=== PATIENT | female | born 1990 | race Caucasian/White ===

== ENCOUNTER 2017-12-13 11:38 | Emergency (ER) | payer OTHER ==
[2017-12-13] MEDS: IBUPROFEN 800 MG TAB PO (13:08)
[2017-12-13 13:27] LABS: URINE BLOOD (Dip) POC 1+ (NEGATIVE); URINE GLUCOSE (Dip) POC Negative (NEGATIVE); URINE KETONES (Dip) POC Negative (NEGATIVE); URINE LEUKOCYTE EST (Dip) POC Negative (NEGATIVE); URINE NITRITE (Dip) POC Negative (NEGATIVE); URINE TOTAL PROTEIN POC Trace (NEGATIVE)
== END 2017-12-13 14:50 | disposition home or self-care (01) ==
LOC: FTE 11:38
DX: R07.81 Pleurodynia (principal)
CPT/HCPCS: 71045; 81003; 81025; 93005; 99284-25

== ENCOUNTER 2018-12-15 15:06 | Emergency (ER) | payer OTHER ==
[2018-12-15] MEDS: ONDANSETRON (ODT) 4 MG TAB ODT (16:51)
[2018-12-15] MEDS: IBUPROFEN 600 MG TAB PO (16:51)
[2018-12-15 16:52] LABS: URINE PH (Dip) POC 5.5 (5.0-8.5)
[2018-12-15 16:52] LABS: URINE BLOOD (Dip) POC 1+ (NEGATIVE); URINE GLUCOSE (Dip) POC Negative (NEGATIVE); URINE KETONES (Dip) POC Negative (NEGATIVE); URINE LEUKOCYTE EST (Dip) POC Negative (NEGATIVE); URINE NITRITE (Dip) POC Negative (NEGATIVE); URINE TOTAL PROTEIN POC Trace (NEGATIVE)
[2018-12-15 17:17] LABS: ADD MAN DIFF? NO
[2018-12-15 17:19] LABS: BASOPHIL # 0.1 10^3/ul (0.0-0.1); BASOPHILS % 0.4 % (0.0-2.0); EOSINOPHILS # 0.1 10^3/ul (0.0-0.5); EOSINOPHILS % 0.4 % (0.0-7.0); HEMATOCRIT 44.5 % (37.0-47.0); HEMOGLOBIN 14.5 g/dl (12.0-16.0); LYMPHOCYTES # 2.9 10^3/ul (0.8-2.9); LYMPHOCYTES % 18.8 % (15.0-51.0); MEAN CORPUSCULAR HEMOGLOBIN 30.9 pg (29.0-33.0); MEAN CORPUSCULAR HGB CONC 32.6 g/dl (32.0-37.0); MEAN CORPUSCULAR VOLUME 94.9 fl (82.0-101.0); MEAN PLATELET VOLUME 10.2 fl (7.4-10.4); MONOCYTE # 1.4 10^3/ul (0.3-0.9); NEUTROPHIL # 10.8 10^3/ul (1.6-7.5); PLATELET COUNT 237 10^3/UL (140-415); RED BLOOD COUNT 4.69 10^6/ul (4.20-5.40); RED CELL DISTRIBUTION WIDTH 12.7 % (11.5-14.5)
[2018-12-15 17:19] LABS: WHITE BLOOD COUNT 15.2 10^3/ul (4.8-10.8)
[2018-12-15 17:43] LABS: ALANINE AMINOTRANSFERASE 15 IU/L (13-69); ALBUMIN 4.3 g/dl (3.3-4.9); ALBUMIN/GLOBULIN RATIO 1.22; ALKALINE PHOSPHATASE 77 IU/L (42-121); ANION GAP 11 (5-13); ASPARTATE AMINO TRANSFERASE 19 IU/L (15-46); BILIRUBIN,INDIRECT 0.8 mg/dl (0-1.1); BILIRUBIN,TOTAL 0.8 mg/dl (0.2-1.3); BLOOD UREA NITROGEN 7 mg/dl (7-20); CALCIUM 9.6 mg/dl (8.4-10.2); CARBON DIOXIDE 27 mmol/L (21-31); CHLORIDE 104 mmol/L (97-110); CREATININE 0.84 mg/dl (0.44-1.00); Estimated GFR > 60 mL/min (>60); GLUCOSE 94 mg/dl (70-220); LIPASE 39 U/L (23-300); POTASSIUM 3.7 mmol/L (3.5-5.1); SODIUM 142 mmol/L (135-144); TOTAL PROTEIN 7.8 g/dl (6.1-8.1)
[2018-12-15 17:54] LABS: TROPONIN-I < 0.012 ng/ml (0.000-0.120)
== END 2018-12-15 18:57 | disposition home or self-care (01) ==
LOC: FTE 15:06
DX: J18.9 Pneumonia, unspecified organism (principal); J90 Pleural effusion, not elsewhere classified; R51 Headache
CPT/HCPCS: 36415; 71045; 80053; 81003; 81025; 83690; 84484; 85025; 93005; 99285-25

== ENCOUNTER 2018-12-16 06:42 | Emergency (ER) | payer OTHER ==
[2018-12-16] MEDS: ONDANSETRON (ODT) 4 MG TAB ODT (07:01)
[2018-12-16] MEDS: DEXAMETHASONE 10 MG/ML 1 ML INJ IM (07:01)
[2018-12-16] MEDS: ACETAMINOPHEN 500 MG TAB PO (07:01)
== END 2018-12-16 07:30 | disposition home or self-care (01) ==
LOC: FTE 07:30
DX: J18.9 Pneumonia, unspecified organism (principal)
CPT/HCPCS: 96372; 99284-25